=== PATIENT | female | born 1960 | race Caucasian/White ===

== ENCOUNTER → 2025-04-12 | Day surgery (SDC) | payer MEDICAID ==
[~2025-04-12] VITALS: Ht 172.7 cm; Wt 93.4 kg
[~2025-04-12] MED LIST: ACETAMINOPHEN 1000MG/100ML 100 ML IV ONE; BUPIVACAINE HCL/PF 0.5% (5MG/ML) 10ML ONE; FENTANYL CITRATE/PF 50MCG/ML 2ML VIAL ONE; KETOROLAC 30MG/ML VIAL ONE; LIDOCAINE HCL 1% 10 MG/ML 10ML VIAL ONE; METOCLOPRAMIDE HCL 10MG/2ML VIAL ONE; MIDAZOLAM HCL 2 MG/2 ML VIAL ONE; ONDANSETRON HCL 4MG/2ML INJ ONE; PROPOFOL 10MG/ML 100ML 100 ML IV ONE; SKIN ADHESIVE 0.7 GM EA TOP ONE; SODIUM CHLORIDE 0.9% 1,000 ML IV SCH
== END | disposition home or self-care (01) ==
LOC: OR 08:07
PROVIDERS: ATTEND Surgery
DX: D17.21 Benign lipomatous neoplasm of skin and subcutaneous tissue of right arm (principal); I10 Essential (primary) hypertension; E78.5 Hyperlipidemia, unspecified; K21.9 Gastro-esophageal reflux disease without esophagitis; Z79.899 Other long term (current) drug therapy; Z98.890 Other specified postprocedural states
CPT/HCPCS: 24071; J1885; J3010; J0665; J2003; J2765; J2250; J2405; J2704; J0131